=== PATIENT | male | born 2005 | race Caucasian/White ===

== ENCOUNTER 2025-04-26 21:29 | Emergency (ER) | payer OTHER, SELFPAY ==
--- OUTSIDE RECORDS SUMMARY | 2025-04-26 21:31 | XMS_ITS | Continuity of Care Document ---
Author Organization [employer] [place] Address [address] [place] [address] [address] [place] [address] Phone Care Team Providers Care Packing Supervisor Name Role Phone Shipman PT,MPT,ATC, Gonzalo Unavailable Unavai lable Procedures Procedure Date Therapeutic Activities Neuromuscular Re-Ed Therapeutic Activities Neuromuscular Re-Ed Therapeutic Activities Neuromuscular Re-Ed Therapeutic Activities Neuromuscular Re-Ed PT Evaluation Moderate Complexity Therapeutic Activities Neuromuscular Re-Ed Identified as unhealthy alcohol user Jun Identified as unhealthy alcohol user rcv d counseling Unhealthy alcohol via screening rcvd cou nseling OT Re-Evaluation Therapeutic Activities Neuromuscular Re-Ed Therapeutic Exercise Hot or Cold Pack Therapeutic Activities Neuromuscular Re-Ed Therapeutic Exercise Manual Therapy Hot or Cold Pack Therapeutic Activities Neuromuscular Re-Ed Therapeutic Exercise Hot or Cold Pack Therapeutic Activities Neuromuscular Re-Ed Therapeutic Exercise Manual Therapy Hot or Cold Pack Therapeutic Activities Neuromuscular Re-Ed Therapeutic Exercise Hot or Cold Pack Therapeutic Activities Neuromuscular Re-Ed Therapeutic Exercise Manual Therapy Hot or Cold Pack Therapeutic Activities Neuromuscular Re-Ed Therapeutic Exercise Manual Therapy Hot or Cold Pack Therapeutic Activities Therapeutic Exercise Manual Therapy Hot or Cold Pack Therapeutic Activities Therapeutic Exercise Manual Therapy Hot or Cold Pack Therapeutic Activities Therapeutic Exercise Manual Therapy Hot or Cold Pack Therapeutic Activities Therapeutic Exercise Manual Therapy Hot or Cold Pack Identified as unhealthy alcohol user Apr Identified as unhealthy alcohol user rcv d counseling Unhealthy alcohol via screening rcvd cou nseling OT Evaluation Low Complexity Therapeutic Activities Manual Therapy Hot or Cold Pack Advance Directives Directive Yes / No Effective Date File Name No Information Encounters Encounter Description Practice Location Reason(s) For Visit Diagnoses Date Provider Providers Copied on Encounter [facility] [employer] [address], [place], [place], [id number], tel:[phone] [place] No Information 5 Umberto Villegas [place], [place]. [facility], [place], [place], [id number], tel:[phone] [place] No Information 4 Ohnesorge Eriberto. . Referring Provider: Roverto Mercer, [address] [facility] [address], [place], [address]. tel:[phone] [address], [place], [place], [id number], [place] tel:[phone] [place] No Information Dec-2 0-202 4 Ohnesorge Eriberto. . Referring Provider: Roverto Mercer, [address] [facility] [address], [place], [address]. tel:[phone] [facility], [address] [facility] [address], [place], [place], [id number], [place] tel:[phone] [place] No Information Dec-1 3-202 4 Ohnesorge Eriberto. . Referring Provider: Roverto Mercer, [address] [facility] [address], [place], [address]. tel:[phone] [facility] [address] [facility] [place], [place], [place], [id number], [place] tel:[phone] [place] No Information Dec-0 6-202 4 Ohnesorge Eriberto. . Referring Provider: Roverto Mercer, [address] [facility] [address], [place], [address]. tel:[phone] [facility], [address] [place], [place] [address] [facility] [place] [facility] [place], [place], [place], [id number], [place] tel:[phone] [place] No Information Dec-0 3-202 4 Umberto BrashernThomas [place], [place]. Referring Provider: Roverto Mercer, [address] [facility] [address], [place], [address]. tel:[phone] [facility] [address] [facility] [address], [place], [place], [id number], [place] tel:[phone] [place] No Information Oct-2 2-202 4 Leyva Zainab. . Referring Provider: Aida Zamora, [address] [facility], [place], [address]. tel:[phone] [facility] [facility] [address], [place], [place], [id number], [place] tel:[phone] [place] No Information 4 Leyva Zainab. . Referring Provider: Aida Zamora, [address] [place] [address], [place], [address]. tel:[phone] [facility], [address] [place] [address], [place], [place], [id number], [place] tel:[phone] [place] No Information 0 4 Leyva Zainab. . Referring Provider: Aida Zamora [address] [place] [address], [place], [address]. tel:[phone] [place] [address], [place], [place], [id number], [place] tel:[phone] [place] No Information 0 4 Leyva Zainab. . Referring Provider: Aida Zamora [address] [place] [address], [place], [address]. tel:[phone] [facility], [address] [place] [address], [id number], [place] tel:[phone] [place] No Information 4 Leyva Zainab. . Referring Provider: Aida Zamora [address] [place] [address], [place], [address]. tel:[phone], [id number], [place] tel:[phone] [place] No Information Sep- 4 Leyva Zainab. . Referring Provider: Aida Zamora [address] [place] [address], [place], [address]. tel:[phone] [facility], [address] [place] [address] [address], [place], [place], [id number], [place] tel:[phone] [place] No Information Sep- 4 Leyva Zainab. . Referring Provider: Aida Zamora [address] [place], [address]. tel:[phone], [id number], tel:[phone] [place] No Information 0 4 Leyva Zainab. . Referring Provider: Aida Zamora, [address] [place] [address], [address]. tel:[phone], [id number], tel:[phone] [place] No Information 4 Juan Allan. . Referring Provider: Aida Zamora, [address] [place] [address], [address]. tel:[phone], [id number], tel:[phone] [place] No Information 4 Leyva Zainab. . Referring Provider: Aida Zamora [address] [place] [address], [address]. tel:[phone], [id number], tel:[phone] [place] No Information 4 Leyva Zainab. . Referring Provider: Aida Zamora [address] [place] [address], [address]. tel:[phone], [id number], tel:[phone] [place] No Information 0 4 Leyva Zainab. . Referring Provider: Aida Zamora [address] [place] [address], [address]. tel:[phone] Family History Family Member Type Diagnosis Age At Onset No Information Payers Payer name Insurance type Covered alliance party ID Trip umana(s) [facility] [id number] Social History Type Description Quantity Date Captured Comments Sex Male Smoking Status No Information Chief Complaint And Reason For Visit No Information Reason For Referral Reason For Referral No Information History Of Present Illness Encounter Date Complaint History Of Prese nt Illness No Information Functional Status Date Functional Assessmen t No Information Instructions Date Instruction Additional Infor mation No Information Assessments Type Assessment Date No Information Patient Care Teams Name Effective Dates (start - stop) Status Members No Information
--- OUTSIDE RECORDS SUMMARY | 2025-04-26 21:31 | XMS_ITS | Clinical Summary ---
Author Organization [facility] [address] [facility] [place] [address] Care Team Providers Care Peoplesoft Hr Developer Name Role Phone Breanna Hawkins MD Unavailable [phone] Aida Zamora NP Primary Care Provider [phone] Allergies No known active allergies Medications PreviDent 5000 Booster Plus 1.1 % paste as directed 02/17/2023 Activ e meloxicam (MOBIC) 15 mg tablet Take 1 tablet (15 mg total) by mouth daily for 7 days Take 1 daily with food 7 tablet 08/03/2024 Active Active Problems Problem Noted Date Diagnosed Date 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 Tested positive again 8 days ago., minimal symptoms Gynecomastia, male Assessment & Plan (04/12/2024 12:38 PM CDT): Labs and ultrasound have been unremarkable. Will get repeat labs for subjective growth but holding on repeat imaging. May need to see plastics if becomes bothersome enough but for now will monitor. Denies any supplement or medications that would contribute. Resolved Problems Problem Noted Date Diagnosed Date Resolved Date Elevated blood pressure reading 03/08/2019 03/16/2020 Immunizations Immunization Administration Dates Next Due DTaP 5 Pertussis 04/20/2007, 4,2003,08/08,2003 HPV9 11/22/2016,07/15/2016,04/29/2016 Hep A, Unspecified 04/17/2009,04/21/2008 Hep B Vaccine 2003,2003,2003 HiB 03/20/2004, 4,2003,06/05 IPV 04/20/2007, 4,2003,06/05 Influenza, Quadrivalent, Spl it, Preservative Free, Intramuscular 04/29/2016,07/02/2015 Influenza, Trivalent, Preser vative Free, Intramuscular 07/17/2010,05/26/2008,06/24/2007,07/22,06/24/2005,06/17/2004,2003 Influenza, Unspecified 09/21/2023(Deferr ed: Patient Refused),09/21/2022(Deferred: Patient Refused) MMR 03/20/2004 MMRV 04/20/2007 Meningococcal B, Recombinant (Trumenba) 03/16/2020,05/07/2019 Meningococcal MCV4P (Menactra) 05/07/2019,2013 Pfizer SARS-CoV-2 Monovalent Vaccination (12+ Yrs) PURPLE 01/10/2021,12/18/2020 Pneumococcal Conjugate, Unspecified 01/2004,2003,2003,06/05 Tdap 03/18/2022,12/08/2011 Varicella 03/20/2004 Surgical History Surgery Date Site/Laterality Comments WISDOM TOOTH EXTRACTION 11/19/2022 - 12/19/2022 CYST REMOVAL Medical History Medical History Date Comments Chalazion of right eye Chalazion of right eye - Improving (Added by TW Conv) Allergic rhinitis Gynecomastia, male Family History Medical History Relation Name Comments Hypertension Father Anesthesia problems Neg Hx Relation Name Status Comments Father Social History Tobacco Use Types Packs/Day Years Used Date Smoking Tobacco: Never Smokeless Tobacco: Never AUDIT-C Answer Date Recorded Q1: How often do you have a drink containing alc ohol? Monthly or less 02/27/2023 Average Number of Drinks Not on file 023 Frequency of Binge Drinking Not on file 05/2023 PHQ-2 Answer Date Recorded PHQ-2 Total Score (If total score is 3 or more points, staff should administer the PHQ-9) 0 04/12/2024 Personal Safety Answer Date Recorded Have you ever been in or are you currently in a harmful physical or emotional relationship or is someone making you feel afraid or unsafe? Denies 02/27/2023 Sex and Gender Information Value Date Recorded Sex Assigned at Not on file Legal Sex Male 11:50 PM OUTREACH TEAM MEMBER Gender Identity Not on file Sexual Orientation Not on file Obstetrics History Last Filed Vital Signs Vital Sign Reading Time Taken Comments Blood Pressure 120/72 04/12/2024 11:34 AM CDT Pulse 75 04/12/2024 11:34 AM CDT Temperature 36.9 C (98.4 F) 04/12/2024 11:34 AM CDT Respiratory Rate 15 02/27/2023 1:40 PM CDT Oxygen Saturation 98% 04/12/2024 11:34 AM CDT Inhaled Oxygen Concentration - - Weight 68 kg (150 lb) 08/03/2024 4:45 PM OUTREACH TEAM MEMBER Height 175.3 cm (5' 9) 08/03/2024 4:45 PM OUTREACH TEAM MEMBER Body Mass Index 22.15 08/03/2024 4:45 PM OUTREACH TEAM MEMBER Plan of Treatment Health Maintenance Due Date Last Done Comments Regular Well Visit/Exam 18-64 03/18/2023 03/18/2022, 03/18/2021 Covid-19 Vaccine (3 - 2023-2 5 season) 2024 01/10/2021, 12/18/2020 Depression Screening 04/12/2025 04/12/2024, 03/18/2022, 03/18/2022, Additional history exists Influenza Vaccine (#1) 2025 6, 07/02/2015, 07/17/2010, Additional history exists DTaP/Tdap/Td Vaccine (7 - Td or Tdap) 03/18/2032 03/18/2022, 12/08/2011, 04/20/2007, Additional history exists Hepatitis B Screening Completed 2003 , 2003, 2003 Pneumococcal vaccine <65 Completed 004, 2003, 2003, Additional history exists Varicella Vaccines Completed 04/20/2007, 03/20/2004 HPV Vaccines Completed 11/22/2016, 06/22, 04/29/2016 Meningococcal B Vaccine Completed 03/16/2020, 05/07 Hepatitis C Screening Completed 04/26/2024 Procedures Procedure Name Priority Date/Time Associated Diagnosis Comments HEPATITIS C ANTIBODY Routine 04/26/2024 1:32 PM CDT Encounter for hepatitis C screening test for low risk patient from Last 3 Months or Most Recently Relevant to Health Maintenance Results * Hepatitis C antibody Blood (04/26/2024 1:32 PM CDT) Hep C Ab NON-REACTI VE NON-REACT [facility] Comment: HCV antibody was non-reactive. There is no laboratory evidence of HCV infection. In most cases, no further action is required. However, if recent HCV exposure is suspected, a test for HCV RNA (test code 30496) is suggested. For additional information please refer to http://education.Mompery/faq/SKE35j0 (This link is being provided for informational/ educational purposes only.) Blood 04/26/2024 1:32 PM CDT 04/26/2024 1:33 PM CDT Narrative [facility] - 04/28/2024 4:53 AM CDT FASTING:NO FASTING: NO us Aida Zamora NP LAB MICROBIOLOGY - GENERAL ORDER SONDRA Final Result [facility] [address] [address] [phone] from Last 3 Months or Most Recently Relevant to Health Maintenance Insurance CHOICE PLUS CHOICE PLUS CHOICE PLUS CHOICE PLUS CHOICE PLUS [place] [id number] Care Teams Peoplesoft Hr Developer Relationship Specialty Start Date End Date Aida Zamora NP [address] [facility] [address] [place] [address] PCP - General Family Medicine 04/12/24 Breanna Hawkins MD [address] [facility] [address] [place] [address] 08/23/21
[2025-04-26 21:41] VITALS: BP 150/67; PULSE 78; RESP 16; TEMP 36.8; O2SAT 98
--- NOTE | 2025-04-26 22:15 | ED.SKABFB ---
HPI - Skin/Abscess/Foreign Bdy General Chief complaint: Skin/Abscess/Foreign Body Stated complaint: lac to right wrist Time Seen by Provider: 04/26/25 21:43 History of Present Illness HPI narrative: Patient is a 20-year-old male who presents to the ER after sustaining a laceration in between his right 2nd and 3rd fingers. 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 Patient is unsure when he last had his tetanus shot. Endorses some numbness and tingling to the tip of his right 2nd finger. Patient denies any decreased range of motion, snuffbox tenderness, or purulent drainage from the area. He denies any other medical history relevant to this ER visit. Related Data Allergies Allergy/AdvReac Type Severity Reaction Status Date / Time No Known Allergies Allergy Verified 04/26/25 21:39 Review of Systems Review of Systems: All systems reviewed & are unremarkable except as noted in HPI and below Exam Narrative: GENERAL: Well appearing, well-nourished, non-toxic, in no acute distress. HEAD: Normocephalic, atraumatic. NECK: Supple. No adenopathy, no masses. RESPIRATORY: Airway patent, respirations nonlabored. Clear to auscultation bilaterally, no rales, rhonchi, wheezing. CARDIOVASCULAR: Regular rate and rhythm without murmurs, rubs, or gallops. Peripheral pulses 2+ and equal bilaterally. ABDOMINAL: Soft, nontender, nondistended, no hepatosplenomegaly. Normoactive BS. MUSCULOSKELETAL: Moves all extremities. Strength/ROM intact without gross deformities. SKIN: Warm, dry, normal color. No rashes. 1 cm linear laceration in between 2nd and 3rd digit. Bleeding controlled. No significant swelling to site. NEURO: A&O X3. Speech clear. Cranial nerves II-XII intact. No ataxic movements. PSYCHIATRIC: Appropriate mood and affect. Normal interaction. Course Vital Signs Vital signs: Vital Signs Temperature 36.8 C 04/26/25 21:41 Pulse Rate 78 04/26/25 21:41 Respiratory Rate 16 04/26/25 21:41 Blood Pressure 150/67 H 04/26/25 21:41 Pulse Oximetry 98 04/26/25 21:41 Oxygen Delivery Room Air 04/26/25 21:41 Temperature 36.8 C 04/26/25 21:41 Pulse Rate 78 08/06/25 21:41 Respiratory Rate 16 04/26/25 21:41 Blood Pressure 150/67 H 04/26/25 21:41 Pulse Oximetry 98 04/26/25 21:41 Oxygen Delivery Room Air 04/26/25 21:41 Procedures Laceration Laceration 1: Date: 04/26/25 Time: 22:41 Site: hand Side (If applicable): right Size (cm): 1 Description: linear Depth: simple, single layer Local Anesthetic: lidocaine 1% Amount of anesthesia used (mL): 5 Pre-repair: wound explored and irrigated extensively ====== Skin Level ====== Skin layer closed with: nylon Size (cm): 5-0 Number of sutures: 2 Technique: simple, interrupted ====== Subcutaneous Layer ====== ====== Muscle Layer ====== ====== Tendon Layer ====== MDM - Skin/Abscess/Foreign Bdy MDM Narrative Medical decision making narrative: Patient is a 20-year-old male who presents to the ER after sustaining a laceration in between his right 2nd and 3rd fingers. 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 Patient is unsure when he last had his tetanus shot. Endorses some numbness and tingling to the tip of his right 2nd finger. Patient denies any decreased range of motion, snuffbox tenderness, or purulent drainage from the area. He denies any other medical history relevant to this ER visit. Imaging: None necessary as patient cut his finger on a sink with no concerns for foreign objects Medications Ordered: Lidocaine 1%, Tdap Diagnosis: Laceration Patient Education/Shared MDM: No active bleeding upon my evaluation. Lidocaine used with adequate anesthesia. Laceration was repaired with 2 5.0 Ethilon sutures without complications. Patient was given wound care instructions and advised to follow-up with primary care doctor in the next 10-14 days for suture removal. He received his Tdap vaccine while in the ER. All questions answered. Vital signs stable at time of discharge. He will be discharged home with no new prescriptions. Strict return precautions provided. Patient verbalized understanding and is in agreement with plan. Vital signs stable at time of discharge. All questions answered. Differential Diagnosis Differential diagnosis: Likely abscess of skin or subcutaneous tissue, urticaria and other (Laceration, avulsion) Discharge Plan Discharge Clinical Impression: Laceration, Pain in finger of right hand Patient Disposition: Home Condition: Stable Instructions: Antibiotic Form, Care For Your Stitches (ED), Finger Laceration (ED) Additional Instructions: Please return to the ER with any worsening symptoms. Follow-up with primary care provider in 10-14 days for suture removal. You may take Tylenol and/or ibuprofen for pain control. Please keep the wound clean and dry. You may keep a Band-Aid over the site. If the site becomes itchy you may put bacitracin over the stitches twice a day. Please allow water and soap to run over the site but do not scrub the area. Return to the ER if you pus, excessive redness or swelling, or developed a fever. Patient Language: Tristanian Follow-up/Referrals: PHYSICIAN NOT ON STAFF,NONSTAFF [Primary Care Provider] - Stand Alone Forms: Work/School Release IP Time of Disposition: 22:28
[2025-04-26] MEDS: LIDOCAINE 1% LOCAL INJ 10 ML VIAL INFILTRATE (22:30)
[2025-04-26] MEDS: TETANUS,DIPHTHERIA,AC PERTUSSIS ADULT (0.5 ML) BOOSTRIX IM (22:54)
--- OUTSIDE RECORDS SUMMARY | 2025-04-26 23:00 | XMS_ITS | Continuity of Care Document ---
Author Organization [facility] [place] Address [address] [place] [address] [address] [place] [address] Phone Care Team Providers Care Cooker Soda Name Role Phone Shipman PT,MPT,ATC, Gonzalo Unavailable [...] or Cold Pack Therapeutic Activities Therapeutic Exercise Hot or Cold Pack Manual Therapy Therapeutic Activities Therapeutic Exercise Manual Therapy Hot [...] Diagnoses Date Provider Providers Copied on Encounter [facility], [place], [place], [id number], tel:[phone] [place] No Information 5 Umberto Villegas [place], [place]. [facility] [address], [place], [place], [id number], tel:[phone] [place] No Information 4 Ohnesorge Eriberto. . Referring Provider: Roverto Mercer, [address] [facility] [address], [place], [address]. tel:[phone] [address], [place], [place], [id number], [place] tel:[phone] [place] No Information Dec-2 0-202 4 Ohnesorge Eriberto. . Referring Provider: Roverto Mercer, [address] [facility] [address], [place], [address]. tel:[phone] [facility], [address] [facility], [place], [place], [id number], [place] tel:[phone] [place] No Information Dec-1 3-202 4 Ohnesorge Eriberto. . Referring Provider: Roverto Mercer, [address] [facility] [address], [place], [address]. tel:[phone] [facility] [address] [facility], [place], [place], [id number], [place] tel:[phone] [place] No Information Dec-0 6-202 4 Ohnesorge Eriberto. . Referring Provider: Roverto Mercer, [address] [facility] [address], [place], [address]. tel:[phone] [facility], [address] [place], [place] [address]u[address] [facility], [place], [place], [id number], [place] tel:[phone] [place] No Information Dec-0 3-202 4 Umberto Brashern[place], [place]. Referring Provider: Roverto Mercer, [address] [facility] [address], [place], [address]. tel:[phone] [facility] [address] [facility] [address], [place], [place], [id number], [place] tel:[phone] [place] No Information Oct-2 2-202 4 Leyva Zainab. . Referring Provider: Aida Zamora, [address] [facility], [place], [address]. tel:[phone] [facility] [facility], [place], [place], [id number], [place] tel:[phone] [place] No Information 4 Leyva Zainab. . Referring Provider: Aida Zaomra, [address] [place] [address], [place], [address]. tel:[phone] [facility], [address] [place] [address], [place], [place], [id number], [place] tel:[phone] [place] No Information 0 4 Leyva Zainab. . Referring Provider: Aida Zamora [address] [place] [address], [place], [address]. tel:[phone] [place] [address], [place], [place], [id number], [place] tel:[phone] [place] No Information 0 4 Leyva Zainab. . Referring Provider: Aida Zamora [address] [place] [address], [place], [address]. tel:[phone] [facility], [address] [place] [address], [id number], [place] tel:[phone] [place] No Information 4 Leyva Zainab. . Referring Provider: Aida Zamora [address] [place] [address], [place], [address]. tel:[phone], [id number], [place] tel:[phone] [place] No Information Sep- 4 Leyva Zainab. . Referring Provider: Aida Zamora [address] [place] [address], [place], [address]. tel:[phone] [facility], [address] [place] [address] [address], [place], [place], [id number], [place] tel:[phone] [place] No Information Sep- 4 Leyva Zainab. . Referring Provider: Aida Zamora [address] [place], [address]. tel:[phone], [id number], tel:[phone] [place] No Information 0 4 Leyva Zainab. . Referring Provider: Aida Zamora, [address] [place] [address], [address]. tel:[phone], [id number], tel:[phone] [place] No Information 4 Juan Allan. . Referring Provider: Aida Zamora, [address] [place] [address], [address]. tel:[phone], [id number], tel:[phone] [place] No Information 4 Leyva Zainab. . Referring Provider: Aida Zamora [address] [place] [address], [address]. tel:[phone], [id number], tel:[phone] [place] No Information 4 Leyva Zainab. . Referring Provider: Aida Zamora [address] [place] [address], [address]. tel:[phone], [id number], tel:[phone] [place] No Information 0 4 Leyva Zainab. . Referring Provider: Aida Zamora [address] [place] [address], [address]. tel:[phone] Family History Family Member Type Diagnosis Age At Onset No Information Payers Payer name Insurance type Covered republican ID Trip umana(s) [facility] [id number] Social History Type Description Quantity Date Captured [...]
--- OUTSIDE RECORDS SUMMARY | 2025-04-26 23:00 | XMS_ITS | Clinical Summary ---
Author Organization 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 There is no laboratory evidence of HCV infection. In most cases, no further action is required. However, if recent HCV exposure is suspected, a test for HCV RNA (test code 89761) is suggested. For additional information please refer to http://education.Limundo/faq/KDO93z4 (This link is being provided for informational/ educational purposes only.) Blood 04/26/2024 1:32 PM CDT 04/26/2024 1:33 PM CDT Narrative [facility] - 04/28/2024 4:53 AM CDT FASTING:NO FASTING: NO us Aida Zamora NP LAB MICROBIOLOGY - GENERAL ORDER SONDRA Final Result [facility] [employer] [id number] [address] [phone] from Last 3 Months or Most Recently Relevant to Health Maintenance Insurance CHOICE PLUS CHOICE PLUS CHOICE PLUS CHOICE PLUS CHOICE PLUS [place] [id number] Care Teams Batch And Furnace Manager Relationship Specialty Start Date End Date Aida Zamora NP [address] [facility] 130 [place] [address] PCP - General Family Medicine 04/12/24 Breanna Hawkins MD [address] [facility] 230 [place] [address] 08/23/21
== END 2025-04-26 23:03 | disposition home or self-care (01) ==
LOC: ANHED 22:58
PROVIDERS: Emergency Provider Registered Nurse
DX: S61.411A Laceration without foreign body of right hand, initial encounter (principal); W26.8XXA Contact with other sharp object(s), not elsewhere classified, initial encounter; Z23 Encounter for immunization
CPT/HCPCS: 12001; 90471; 90715; 99282; J2003

== ENCOUNTER 2025-05-07 15:55 | Emergency (ER) | payer OTHER, SELFPAY ==
[2025-05-07 15:55] VITALS: BP 130/77; PULSE 70; RESP 16; TEMP 36.2; O2SAT 99
--- OUTSIDE RECORDS SUMMARY | 2025-05-07 15:57 | XMS_ITS | Continuity of Care Document ---
Author Organization [facility] [facility] Address [address] [place] [address] [address] [place] [address] Phone Care Team Providers Care Clinical Nutrition Manager Name Role Phone Shipman PT,MPT,ATC, Gonzalo Unavailable [...] Diagnoses Date Provider Providers Copied on Encounter [facility], [place], [place], [id number], tel:[phone] [employer] No Information 5 Umberto Villegas [place], [place]. [facility], [place], [place], [id number], tel:[phone] [employer] No Information 4 Ohnesorge Eriberto. . Referring Provider: Roverto Mercer, [address] [facility] [address], [place], [address]. tel:[phone] [address], [place], [place], [id number], [place] tel:[phone] [employer] No Information Dec-2 0-202 4 Ohnesorge Eriberto. . Referring Provider: Roverto Mercer, [address] [facility] [address], [place], [address]. tel:[phone] [facility], [address] [facility], [place], [place], [id number], [place] tel:[phone] [employer] No Information Dec-1 3-202 4 Ohnesorge Eriberto. . Referring Provider: Roverto Mercer, [address] [facility] [address], [place], [address]. tel:[phone] [facility] [address] [facility], [place], [place], [id number], [place] tel:[phone] [employer] No Information Dec-0 6-202 4 Ohnesorge Eriberto. . Referring Provider: Roverto Mercer, [address] [facility] [address], [place], [address]. tel:[phone] [facility], [address] [place], [place] [address]uite [facility], [place], [place], [id number], [place] tel:[phone] [employer] No Information Dec-0 3-202 4 Umberto BrashernThomas [place], [place]. Referring Provider: Roverto Mercer, [address] [facility] [address], [place], [address]. tel:[phone] [facility] [address] [facility], [place], [place], [id number], [place] tel:[phone] [employer] No Information Oct-2 2-202 4 Leyva Zainab. . Referring Provider: Aida Zamora, [address] [facility], [place], [address]. tel:[phone] [facility] [facility], [place], [place], [id number], [place] tel:[phone] [employer] No Information 4 Leyva Zainab. . Referring Provider: Aida Zamora, [address] [place] [address], [place], [address]. tel:[phone] [facility], [address] [place] [address], [place], [place], [id number], [place] tel:[phone] [employer] No Information 0 4 Leyva Zainab. . Referring Provider: Aida Zamora [address] [place] [address], [place], [address]. tel:[phone] [place] [address], [place], [place], [id number], [place] tel:[phone] [employer] No Information 0 4 Leyva Zainab. . Referring Provider: Aida Zamora [address] [place] [address], [place], [address]. tel:[phone] [facility], [address] [place] [address], [id number], [place] tel:[phone] [employer] No Information 4 Leyva Zainab. . Referring Provider: Aida Zamora [address] [place] [address], [place], [address]. tel:[phone], [id number], [place] tel:[phone] [employer] No Information Sep- 4 Leyva Zainab. . Referring Provider: Aida Zamora [address] [place] [address], [place], [address]. tel:[phone] [facility], [address] [place] [address] 300, [place], [place], [id number], [place] tel:[phone] [employer] No Information Sep- 4 Leyva Zainab. . Referring Provider: Aida Zamora [address] [place], [address]. tel:[phone], [id number], tel:[phone] [place] No Information 0 4 Leyva Zainab. . Referring Provider: Aida Zamora, [address] [place] [address], [address]. tel:[phone], [id number], tel:[phone] [employer] No Information 4 Juan Allan. . Referring Provider: Aida Zamora, [address] [place] [address], [address]. tel:[phone], [id number], tel:[phone] [employer] [place] No Information 4 Leyva Zainab. . Referring Provider: Aida Zamora [address] [place] [address], [address]. tel:[phone], [id number], tel:[phone] [employer] No Information 4 Leyva Zainab. . Referring Provider: Aida Zamora [address] [place] [address], [address]. tel:[phone], [id number], tel:[phone] [employer] [place] No Information 0 4 Leyva Zainab. . Referring Provider: Aida Zamora [address] [place] [address], [address]. tel:[phone] Family History Family Member Type Diagnosis Age At Onset No Information Payers Payer name Insurance type Covered constitution party ID Trip umana(s) [facility] [id number] Social History Type Description Quantity Date Captured [...]
--- OUTSIDE RECORDS SUMMARY | 2025-05-07 15:57 | XMS_ITS | Clinical Summary ---
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 There is no laboratory evidence of HCV infection. In most cases, no further action is required. However, if recent HCV exposure is suspected, a test for HCV RNA (test code 00621) is suggested. For additional information please refer to http://education.MDSave/faq/OAX71p7 (This link is being provided for informational/ educational purposes only.) Blood 04/26/2024 1:32 PM CDT 04/26/2024 1:33 PM CDT Narrative [facility] - 04/28/2024 4:53 AM CDT FASTING:NO FASTING: NO us Aida Zamora NP LAB MICROBIOLOGY - GENERAL ORDER SONDRA Final Result [facility] [employer] [id number] [address] [phone] from Last 3 Months or Most Recently Relevant to Health Maintenance Insurance CHOICE PL[facility] H[facility]/PPO Address: [address] [place] [address] [facility] H[facility]/PPO Address: [address] [place] [address] [facility] H[facility]/PPO Address: [address] [place] [address] [facility] H[facility]/PPO Address: [place] [address] [facility] HMO/PPO Address: [address] [address] [place] [address] [facility] Address: [address] [address] [place] [id number] Care Teams Salvage Machine Operator Relationship Specialty Start Date End Date Aida Zamora NP [address] [facility] 130 [place] [address] PCP - General Family Medicine 04/12/24 Breanna Hawkins MD 4488 [facility] [address] [place] [address] 08/23/21
[2025-05-07 16:07] VITALS: RESP 15
--- NOTE | 2025-05-07 16:08 | ED.RECABL ---
HPI - Recheck/Abnormal Lab/Rx General Chief Complaint: Recheck/Abnormal Lab/Rx Stated Complaint: suture removal Time Seen by Provider: 05/07/25 16:03 Source: patient Mode of arrival: ambulatory Limitations: no limitations History of Present Illness HPI narrative: This is a 20-year-old male that presents emergency department for suture removal. Denies fevers, erythema, abnormal drainage. Related Data Allergies Allergy/AdvReac Type Severity Reaction Status Date / Time No Known Allergies Allergy Verified 04/26/25 21:39 Review of Systems Review of Systems: All systems reviewed & are unremarkable except as noted in HPI and below PMFSH Past Medical History Medical History (Updated 05/07/25 @ 16:10 by Yanna Klein PA-C) No active medical problems Exam Narrative: GENERAL: Well-appearing, well-nourished, and in no acute distress. HEAD: Normocephalic, atraumatic. EYES: EOMI. EXTREMITIES: Normal range of motion. No edema, erythema, abnormal drainage. 2 sutures present between the right 2nd and 3rd fingers SKIN: Warm, dry, no rash. NEURO: No focal deficits. Alert and oriented x3. PSYCH: Normal mood and affect Course Vital Signs Vital signs: Vital Signs Temperature 97.1 F L 05/07/25 15:55 Pulse Rate 70 05/07/25 15:55 Respiratory Rate 16 05/07/25 15:55 Blood Pressure 130/77 05/07/25 15:55 Pulse Oximetry 99 05/07/25 15:55 Temperature 97.1 F L 05/07/25 15:55 Pulse Rate 70 05/07/25 15:55 Respiratory Rate 15 05/07/25 16:07 Blood Pressure 130/77 05/07/25 15:55 Pulse Oximetry 99 05/07/25 15:55 Procedures Foreign Body Removal Foreign Body #1: Foreign Body Removal Date: 05/07/25 Foreign Body Removal Time: 16:11 Site: right Description of foreign body: other (sutures) Sedation/Analgesia: none Technique: other (scissors) Confirmed by:: direct visualization Complications: none MDM - Recheck/Abnormal Lab/Rx MDM Narrative Medical decision making narrative: Patient's sutures were removed without complication. No signs of infection. Educated on continued wound care Critical Care Time Critical Care Time Critical Care Time: No Discharge Plan Discharge Clinical Impression: Visit for suture removal Patient Disposition: Home Condition: Stable Instructions: Stitches Removal (ED) Additional Instructions: Return to the emergency department if you experience fever, redness or swelling of your wound, abnormal drainage from your wound, or any other symptoms that are concerning to you. Clean with mild soap and water daily Follow-up with your primary care doctor as needed Patient Language: Indonesian Follow-up/Referrals: PHYSICIAN NOT ON STAFF,NONSTAFF [Primary Care Provider] -
--- OUTSIDE RECORDS SUMMARY | 2025-05-07 16:27 | XMS_ITS | Continuity of Care Document ---
Author Organization [email or web address] [place] Address [address] [place] [address] [address] [place] [address] Phone Care Team Providers Care Reel Blade Bender Furnace Tender Name Role Phone Shipman PT,MPT,ATC, Gonzalo Unavailable [...] Date Provider Providers Copied on Encounter [facility], [place], [place], [id number], tel:[phone] [employer] No Information 5 Umberto Villegas [place], [place]. [facility], [place], [place], [id number], tel:[phone] [employer] No Information 4 Ohnesorge Eriberto. . Referring Provider: Roevrto Mercer, [address] [facility] [address], [place], [address]. tel:[phone] [address], [place], [place], [id number], [place] tel:[phone] [place] No Information Dec-2 0-202 4 Ohnesorge Eriberto. . Referring Provider: Roverto Mercer, [address] [facility] [address], [place], [address]. tel:[phone] [facility], [address] [facility], [place], [place], [id number], [place] tel:[phone] [employer] No Information Dec-1 3-202 4 Ohnesorge Eriberto. . Referring Provider: Roverto Mercer, [address] [facility] [address], [place], [address]. tel:[phone] [facility] [address] [facility], [place], [place], [id number], [place] tel:[phone] [employer] No Information Dec-0 6-202 4 Ohnesorge Eriberto. . Referring Provider: Roverto Mercer, [address] [facility] [address], [place], [address]. tel:[phone] [facility], [address] [place], [place] [address] [facility], [place], [place], [id number], [place] tel:[phone] [employer] No Information Dec-0 3-202 4 Umberto BrashernThomas [place], [place]. Referring Provider: Roverto Mercer, [address] [facility] [address], [place], [address]. tel:[phone] [facility] [address] [facility], [place], [place], [id number], [place] tel:[phone] [employer] No Information Oct-2 2-202 4 Leyva Zainab. . Referring Provider: Aida Zamora, [address] [facility], [place], [address]. tel:[phone] [facility], [place], [place], [address], [place] tel:[phone] [employer] No Information 4 Leyva Zainab. . Referring Provider: Aida Zamora, [address] [place] [address], [place], [address]. tel:[phone] [facility], [address] [place] [address], [place], [place], [id number], [place] tel:[phone] [employer] No Information 0 4 Leyva Zainab. . Referring Provider: Aida Zamora [address] [place] [address], [place], [address]. tel:[phone] [place] [address], [place], [place], [id number], [place] tel:[phone] [employer] No Information 0 4 Leyva Zainab. . Referring Provider: Aida Zamora [address] [place] [address], [place], [address]. tel:[phone] [facility], [address] [place] [address], [id number], [place] tel:[phone] [employer] No Information 4 Leyva Zainab. . Referring Provider: Aida Zamora [address] [place] [address], [place], [address]. tel:[phone], [id number], [place] tel:[phone] [place] No Information Sep- 4 Leyva Zainab. . Referring Provider: Aida Zamora [address] [place] [address], [place], [address]. tel:[phone] [facility], [address] [place] [address] 300, [place], [place], [id number], [place] tel:[phone] [employer] No Information Sep- 4 Leyva Zainab. . Referring Provider: Aida Zamora [address] [place], [address]. tel:[phone], [id number], tel:[phone] [employer] No Information 0 4 Leyva Zainab. . Referring Provider: Aida Zamora, [address] [place] [address], [address]. tel:[phone], [id number], tel:[phone] [place] No Information 4 Juan Allan. . Referring Provider: Aida Zamora, [address] [place] [address], [address]. tel:[phone], [id number], tel:[phone] [place] No Information 4 Leyva Zainab. . Referring Provider: Aida Zamora [address] [place] [address], [address]. tel:[phone], [id number], tel:[phone] [place] No Information 4 Leyva Zaianb. . Referring Provider: Aida Zamora [address] [place] [address], [address]. tel:[phone], [id number], tel:[phone] [place] No Information 0 4 Leyva Zainab. . Referring Provider: Aida Zamora [address] [place] [address], [address]. tel:[phone] Family History Family Member Type Diagnosis Age At Onset No Information Payers Payer name Insurance type Covered democrat ID Trip umana(s) [facility] [id number] Social History Type Description Quantity Date Captured [...]
--- OUTSIDE RECORDS SUMMARY | 2025-05-07 16:27 | XMS_ITS | Clinical Summary ---
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 There is no laboratory evidence of HCV infection. In most cases, no further action is required. However, if recent HCV exposure is suspected, a test for HCV RNA (test code 38575) is suggested. For additional information please refer to http://education.[employer]/faq/TPJ97z0 (This link is being provided for informational/ educational purposes only.) Blood 04/26/2024 1:32 PM CDT 04/26/2024 1:33 PM CDT Narrative [facility] - 04/28/2024 4:53 AM CDT FASTING:NO FASTING: NO us Aida Zamora NP LAB MICROBIOLOGY - GENERAL ORDER SONDRA Final Result [facility] [employer] [id number] [place] [phone] from Last 3 Months or Most Recently Relevant to Health Maintenance Insurance CHOICE PLUS CHOICE PLUS CHOICE PLUS CHOICE PLUS CHOICE PLUS [place] [id number] Care Teams Aesthetics Instructor Relationship Specialty Start Date End Date Aida Zamora NP [address] [facility] 130 [place] [address] PCP - General Family Medicine 04/12/24 Breanna Hawkins MD 4488 [facility] 230 [place] [address] 08/23/21
[2025-05-07 16:37] VITALS: BP 130/77; PULSE 70; RESP 16; TEMP 36.2; O2SAT 99
== END 2025-05-07 16:39 | disposition home or self-care (01) ==
PROVIDERS: Emergency Provider Physician Assistant
DX: S61.401D Unspecified open wound of right hand, subsequent encounter (principal); X58.XXXD Exposure to other specified factors, subsequent encounter
CPT/HCPCS: 15853; 99281; 99282